=== PATIENT | male | born 1965 | race Caucasian/White ===

== ENCOUNTER 2016-10-06 06:33 | Day surgery (SDC) | payer OTHER ==
[2016-10-02 08:55] VITALS: BMI 33.5
[~2016-10-06 06:33] MED LIST: LACTATED RINGERS 1,000 ML IV SCH
[2016-10-06 07:10] VITALS: RESP 18; TEMP 97.7
[2016-10-06] MEDS ORDERED: LACTATED RINGERS 1,000 ML IV ONE (07:20)
[2016-10-06] MEDS ORDERED: PROPOFOL 10 MG/ML 20 ML VIAL IV ONE (07:27)
[2016-10-06] MEDS ORDERED: LIDOCAINE 1% INJ 10MG/ML (20 ML MDV) ONE (07:27)
--- NOTE | 2016-10-06 07:59 | P.OP ---
Date of Procedure: 10/06/16 Preoperative Diagnosis: Screening Postoperative Diagnosis: Mild inflammatory changes with the nodularity consistent with probably pseudopolyps or lymphoid hyperplasia. Probably nonspecific. Procedure(s) Performed: Colonoscopy and cold biopsies of the transverse colon Anesthesia: MAC Surgeon: Theo Galan Estimated Blood Loss (ml): 0 Pathology: other (Bxs Trvse Colon) Condition: stable Disposition: same day Indications for Procedure: Screening Operative Findings: Mild inflammatory changes manifest by very slight erythema and nodularity consistent with probably pseudopolyps mostly in the right side of the colon to about the descending colon probably lymphoid hyperplasia or possible pseudopolyps. Description of Procedure: With the patient in the left lateral position rectal digital examination was normal there were no palpable masses. Prostate was smooth. The video colonoscope was inserted transanally and advanced all the way to the cecum which was entered without visualized. The mucosa were thoroughly examined. Findings summation throughout the right colon up to about the descending colon management despite very slight erythema and some nodularity consistent with probably lymphoid hyperplasia or pseudopolyps of very minimal. Cold biopsies were obtained in the transverse colon. There was one sigmoid diverticulum. The patient tolerated the procedure well without any evident complications. Recommendation high fiber diet. We will review the pathology report. Recommend a follow-up colonoscopy in about 5 years.
[2016-10-06 08:23] VITALS: BP 128/90; PULSE 67
== END 2016-10-06 08:34 | disposition home or self-care (01) ==
LOC: ORWHC2ENDO 06:33
PROVIDERS: ATTEND Surgery
DX: Z12.11 Encounter for screening for malignant neoplasm of colon (principal); K57.30 Diverticulosis of large intestine without perforation or abscess without bleeding; K52.9 Noninfective gastroenteritis and colitis, unspecified; E55.9 Vitamin D deficiency, unspecified; E78.00 Pure hypercholesterolemia, unspecified; I10 Essential (primary) hypertension; E78.5 Hyperlipidemia, unspecified; Z79.1 Long term (current) use of non-steroidal anti-inflammatories (NSAID); Z79.899 Other long term (current) drug therapy
CPT/HCPCS: 88305; 45380; J2001; J2704; 99153

== ENCOUNTER → 2023-08-07 | Outpatient (CLI) | payer OTHER ==
[2023-08-07 15:12] LABS: HCT 51.2 % (39.6-50.0); HGB 17.2 g/dL (13.0-17.0); MCHC 33.6 g/dL (32.0-37.0); MCV 89.2 FL (80.0-97.0); Mean Platelet Volume 9.6 FL (9.5-12.2); NRBC Per 100 WBC 0 X 10*3/uL (0.00-0.01); Platelet Count 229 X 10*3/uL (140-440); RBC 5.74 X 10*6/uL (4.40-5.60); WBC 5.59 X 10*3/uL (4.50-10.00)
[2023-08-07 15:40] LABS: ALT 41 U/L (10-49); AST 33 U/L (14-35); Albumin 4.6 g/dL (3.8-4.9); Albumin/Globulin Ratio 1.84 Ratio (1.60-3.17); Alkaline Phosphatase 89 U/L (41-126); Calcium 9.9 mg/dL (8.7-10.3); Chloride 102 mmol/L (96-109); Chol/HDL Ratio 3.79 Ratio; Globulin 2.5 g/dL (1.6-3.3); Glucose 88 mg/dL (70-110); LDL Cholesterol,Calculated 133.2 mg/dL (0.0-131.0); Potassium 4.8 mmol/L (3.5-5.5); Prostate Specific Antigen 0.55 ng/mL (0.000-3.500); Sodium 138 mmol/L (135-145); Total Bilirubin 0.9 mg/dL (0.3-1.2); Total Protein 7.1 g/dL (6.2-8.2); VLDL Calculation 14.74 mg/dL (5.00-40.00)
== END | disposition home or self-care (01) ==
LOC: LABWHC1 08:29
PROVIDERS: ATTEND Family Medicine
DX: Z00.00 Encounter for general adult medical examination without abnormal findings (principal)
CPT/HCPCS: 36415; 80053; 80061; 82306; 84153; 85027

== ENCOUNTER 2023-10-19 11:53 | Emergency (ER) | payer OTHER ==
[2023-10-19 12:21] VITALS: PULSE 68
[2023-10-19] MEDS: LIDOCAINE 1% INJ 10MG/ML (20 ML MDV) SQ ONE (13:26)
--- NOTE | 2023-10-19 13:38 | ED ---
Skin/Abscess/FB HPI - General Chief complaint: Skin/Abscess/Foreign Body Stated complaint: hemorrhoids Time Seen by Provider: 10/19/23 13:36 Source: patient, RN notes reviewed Mode of arrival: ambulatory Limitations: no limitations - History of Present Illness Initial comments: Patient is a 58-year-old male presented to the ER with a chief complaint of r ectal pain. Patient sent here by PCP for lancing of hemorrhoid. Patient states he started having rectal pain yesterday. He states he did try to reduce it which it did but shortly appeared. Denies any fevers, chills, night sweats. Denies any straining with bowel movements, blood, history of hemorrhoids. - Related Data Home Medications Medication Instructions Recorded Confirmed B Complex & C No.20/Folic Acid 1 mg PO HS 10/02/16 10/02/16 [Nephrocaps Softgel] Cinnamon Bark [Cinnamon] 1,000 mg PO HS 10/02/16 10/02/16 Azalia C 1,000 mg pe PO HS 10/02/16 10/02/16 Glucosam/Sameer-Msm1/C/Jose/Bosw 1 each PO HS 10/02/16 10/02/16 [Glucosamine-Chondroitin Tablet] Magnesium 500 mg PO HS 10/02/16 10/02/16 Multivitamin [Multivitamins Adult 1 each PO HS 10/02/16 10/02/16 Gummies] Naproxen [Naprosyn] 500 mg PO HS 10/02/16 10/02/16 Simvastatin [Zocor] 40 mg PO HS 10/02/16 10/02/16 lisinopriL [Zestril] 2.5 mg PO HS 10/02/16 10/02/16 Previous Rx's Medication Instructions Recorded Amoxic-Pot Clav 875-125Mg 1 tab PO Q12HR 7 Days #14 tab 10/19/23 [Augmentin 875-125] Lidocaine [Lidocaine Rectal Cream 1 applic TOPICAL Q12HR #30 gram 10/19/23 5%] Allergies Allergy/AdvReac Type Severity Reaction Status Date / Time No Known Allergies Allergy Verified 10/02/16 08:35 Review of Systems ROS Statement: Those systems with pertinent positive or pertinent negative responses have been documented in the HPI. ROS Other: All systems not noted in ROS Statement are negative. Past Medical History Past Medical History: Hyperlipidemia, Hypertension History of Any Multi-Drug Resistant Organisms: None Reported Additional Past Surgical History / Comment(s): EXC LIPOMA Past Anesthesia/Blood Transfusion Reactions: No Reported Reaction Past Alcohol Use History: None Reported Past Drug Use History: None Reported - Past Family History Mother Family Medical History: No Reported History General Exam Limitations: no limitations General appearance: alert, in no apparent distress Head exam: Present: atraumatic, normocephalic, normal inspection Respiratory exam: Present: normal lung sounds bilaterally. Absent: respiratory distress, wheezes, rales, rhonchi, stridor Cardiovascular Exam: Present: regular rate, normal rhythm, normal heart sounds. Absent: systolic murmur, diastolic murmur, rubs, gallop, clicks Rectal exam: Present: mass (Right inner buttock. Tender and hard to touch. Skin tone with mild erythema) Neurological exam: Present: alert, oriented X3, CN II-XII intact Psychiatric exam: Present: normal affect, normal mood Skin exam: Present: warm, dry, intact, normal color. Absent: rash Course Vital Signs 10/19/23 10/19/23 12:03 14:14 Temperature 98.4 F 98.1 F Pulse Rate 68 68 Respiratory 12 18 Rate Blood Pressure 154/84 150/80 O2 Sat by Pulse 97 99 Oximetry Procedures - Incision & Drainage Consent Obtained: verbal consent Site: buttock Size (cm): 3 Anesthetic Used: lidocaine 1% Amount (mLs): 2 I&D Cleaning Method: Alcohol Wipe Sterile Field Used?: Yes Ultrasound used: No Needle Aspiration Performed?: Yes Irrigation Performed?: No I&D Drainage Obtained: Blood Insertion of drain: No Culture Obtained?: No Complications: bleeding Patient Tolerated Procedure: well, no complications Medical Decision Making - Medical Decision Making Was pt. sent in by a medical professional or institution (, PA, MARKETING AND PROMOTIONS MANAGER, urgent care, hospital, or usp...) When possible be specific @ -PCP for lancing of hemorrhoid. Did you speak to anyone other than the patient for history (EMS, parent, family, police, friend...)? What history was obtained from this source @ -No Did you review nursing and triage notes (agree or disagree)? Why? @ -I reviewed and agree with nursing and triage notes Were old charts reviewed (outside hosp., previous admission, EMS record, old EKG, old radiological studies, urgent care reports/EKG's, usp records)? Report findings @ -No old charts were reviewed Differential Diagnosis (chest pain, altered mental status, abdominal pain women, abdominal pain men, vaginal bleeding, weakness, fever, dyspnea, syncope, headache, dizziness, GI bleed, back pain, seizure, CVA, palpatations, mental health, musculoskeletal)? @ -Differential Abdominal Pain Men:Appendicitis, cholecystitis, diverticulosis, ischemic bowel, pancreatitis, hepatitis, UTI, gastroenteritis, AAA, incarcerated hernia, bowel obstruction, constipation, inflammatory bowel, hepatitis, peptic ulcer disease, splenic infarction, perforated viscus, testicular torsion, this is not meant to be an all-inclusive list EKG interpreted by me (3pts min.). @ -None X-rays interpreted by me (1pt min.). @ -None done CT interpreted by me (1pt min.). @ -None done U/S interpreted by me (1pt. min.). @ -None done What testing was considered but not performed or refused? (CT, X-rays, U/S, labs)? Why? @ -None What meds were considered but not given or refused? Why? @ -None Did you discuss the management of the patient with other professionals (professionals i.e. , PA, MARKETING AND PROMOTIONS MANAGER, lab, RT, psych nurse, social security benefits interviewer, veneer layer, teacher, banking services officer, caseworker intake)? Give summary @ -No Was smoking cessation discussed for >3mins.? @ -No Was critical care preformed (if so, how long)? @ -No Were there social determinants of health that impacted care today? How? (Homelessness, low income, unemployed, alcoholism, drug addiction, transportation, low edu. Level, literacy, decrease access to med. care, intermediate, rehab)? @ -No Was there de-escalation of care discussed even if they declined (Discuss DNR or withdrawal of care, Hospice)? DNR status @ -No What co-morbidities impacted this encounter? (DM, HTN, Smoking, COPD, CAD, Cancer, CVA, ARF, Chemo, Hep., AIDS, mental health diagnosis, sleep apnea, morbid obesity)? @ -None Was patient admitted / discharged? Hospital course, mention meds given and route, prescriptions, significant lab abnormalities, going to OR and other pertinent info. @ -Discharge. Patient is a 58-year-old male presented to the ER with chief complaint of a hemorrhoid. Patient sent here by PCP for lancing of hemorrhoid. History and physical exam completed. Vitals stable. Patient no signs of acute distress and nontoxic-appearing. 3 cm skin color lesion off of right buttock. Exquisitely tender to touch. Nonreducible. Lesion believed to be abscess as patient has no history of hemorrhoids. I&D was performed which was significant for blood and no purulent drainage. Tolerated procedure well. Patient will be started on antibiotics for prophylaxis. Patient also prescribed lidocaine for pain control. I recommended sitz bath's and laxatives. Advise follow-up with PCP in the next 1 to 2 days. Return parameters discussed. Patient discharged in stable condition with follow-up to PCP. Patient expressed understanding and agreement with care plan. Case discussed with ED attending, Dr. Malone. Undiagnosed new problem with uncertain prognosis? @ -No Drug Therapy requiring intensive monitoring for toxicity (Heparin, Nitro, Insulin, Cardizem)? @ -No Were any procedures done? @ -Yes Diagnosis/symptom? @ -Hemorrhoid Acute, or Chronic, or Acute on Chronic? @ -Acute Uncomplicated (without systemic symptoms) or Complicated (systemic symptoms)? @ -Uncomplicated Side effects of treatment? @ -No Exacerbation, Progression, or Severe Exacerbation? @ -No Poses a threat to life or bodily function? How? (Chest pain, [place], [place], pneumonia, PE, COPD, DKA, ARF, appy, cholecystitis, CVA, Diverticulitis, Homicidal, Suicidal, threat to staff... and all critical care pts) @ -No Disposition Clinical Impression: Hemorrhoid Disposition: HOME SELF-CARE Condition: Stable Instructions (If sedation given, give patient instructions): Hemorrhoids (ED) Additional Instructions: Please complete full course of antibiotics. You may take [id number] Tylenol and Motrin for pain control. I recommend sitz bath's and laxatives. Please follow-up with PCP in the next 1 to 2 days. Prescriptions: Amoxic-Pot Clav 875-125Mg [Augmentin 875-125] 1 tab PO Q12HR 7 Days #14 tab Lidocaine [Lidocaine Rectal Cream 5%] 1 applic TOPICAL Q12HR #30 gram Is patient prescribed a controlled substance at d/c from ED?: No Referrals: Presley Rodriguez MD [Primary Care Provider] - 1-2 days Time of Disposition: 14:02
[2023-10-19 14:40] VITALS: BP 150/80; RESP 18; TEMP 98.1
== END 2023-10-19 14:19 | disposition home or self-care (01) ==
LOC: EC 11:53
DX: K64.9 Unspecified hemorrhoids (principal); I10 Essential (primary) hypertension; Z79.899 Other long term (current) drug therapy
CPT/HCPCS: 99283; 10060; J2001